=== PATIENT | male | born 1980 | race Caucasian/White ===

== ENCOUNTER 2022-07-21 16:58 | Emergency (ER) | payer OTHER, SELFPAY ==
[2022-07-21 17:20] VITALS: BP 138/73; PULSE 94; RESP 20; TEMP 36.8; O2SAT 98
--- NOTE | 2022-07-21 17:54 | ED.URI ---
HPI - URI/Sore Throat General Chief Complaint: Upper Respiratory Infection Stated Complaint: Cough,Body Aches,Sore Throat Time Seen by Provider: 07/21/22 17:45 History of Present Illness HPI Narrative: Randy Smith is a 41-year-old male anxious may with a PMH of depression [facility] of a fever and sore throat for fever sore throat, body aches, headache that started this morning. He has a history of strep and dizzy and does not have any prior medical stuff Related Data Allergies Allergy/AdvReac Type Severity Reaction Status Date / Time No Known Allergies Allergy Verified 07/21/22 18:04 Review of Systems Review of Systems: CONSTITUTIONAL: Has fever, chills, sweats. Has headache EYES: Denies visual changes, redness, discharge. ENT: Denies rhinorrhea, congestion, has sore throat, otalgia. CARDIOVASCULAR: Denies chest pain, palpitations, edema. RESPIRATORY: Denies dyspnea, wheezing, has cough GASTROINTESTINAL: Denies abdominal pain, nausea, vomiting, diarrhea. GENITOURINARY: Denies dysuria, hematuria, abnormal discharge SKIN: Denies rash or itching. NEUROLOGIC: Denies numbness, or focal weakness. PSYCHIATRIC: Denies anxiety or depression. REPLACED BY [facility] Past Medical History Medical History Depression Social History Social History (Updated 07/21/22 @ 18:01 by Sue Awan CNP) Smoking status: Never smoker Alcohol intake: current Comments At time of signature, I agree with nursing past medical, surgical, social and family history. There is no relevant family history pertinent to the presenting complaint. Exam Narrative: GENERAL: This is a well-nourished, well-developed patient, in mild distress. HEAD: normocephalic, atraumatic. EYES: Sclera clear/white. Vision is grossly intact. EARS: External ears normal, auditory canals clear,mild erythema ,and without drainage, TMs normal without perforation. Hearing grossly intact. NOSE: External nose normal without nasal discharge, nares without redness, no rhinorrhea. THROAT: Mucous membranes moist, posterior pharynx erythema NECK: Neck supple, non-tender CARDIOVASCULAR: Regular rate and rhythm without murmurs, gallops, or rubs. RESPIRATORY: Clear to auscultation. Breath sounds equal bilaterally. No wheezes, rales, or rhonchi. GASTROINTESTINAL: Abdomen soft, non-tender, SKIN: warm, intact with no suspicious lesions or rash, good texture and turgor. NEURO: awake, alert, and oriented to person, place and time. There were no obvious focal neurologic abnormalities. Steady gait EXTREMITIES: Normal range of motion. BACK: Nontender without deformity Course Course Emergency Course: patient comes here with sore throat and body aches that started today. States his fever was 102.5 earlier today Strep test positive Started on amoxicillin and to continue use ibuprofen Aleve or Tylenol for pain or fever Level of Care: Express Care Visit Vital Signs Vital signs: Vital Signs Temperature 98.2 F 07/21/22 17:20 Pulse Rate 94 07/21/22 17:20 Respiratory Rate 20 07/21/22 17:20 Blood Pressure 138/73 07/21/22 17:20 Pulse Oximetry 98 07/21/22 17:20 Oxygen Delivery Room Air 07/21/22 17:20 Temperature 98.2 F 07/21/22 17:20 Pulse Rate 94 07/21/22 17:20 Respiratory Rate 20 07/21/22 17:20 Blood Pressure 138/73 07/21/22 17:20 Pulse Oximetry 98 07/21/22 17:20 Oxygen Delivery Room Air 07/21/22 17:20 MDM - URI/Sore Throat Differential Diagnosis Differential diagnosis: Likely upper respiratory infection, sinusitis, viral infection, influenza, pharyngitis and other Lab Data Labs: Influenza A Screen Negative Reference Range: Negative Influenza B Screen Negative Reference Range: Negative Strep Screen Positive Group A Strep
== END 2022-07-21 18:05 | disposition home or self-care (01) ==
PROVIDERS: Emergency Provider Nurse Practitioner
DX: J02.0 Streptococcal pharyngitis (principal); Z20.822 Contact with and (suspected) exposure to COVID-19
CPT/HCPCS: 87426; 87804; 87880; 99203; C9803; G0463

== ENCOUNTER 2025-05-07 12:24 | Emergency (ER) | payer OTHER, SELFPAY ==
--- OUTSIDE RECORDS SUMMARY | 2025-05-07 12:27 | XMS_ITS | Encounter Summary ---
Author Organization [facility] Address [address] [place] [address] Care Team Providers Care Shipyard Painter Name Role Phone Unavailable Primary Care Provider Unavailabl e Prior Encounters Date Type Department Care Team Description 11/20/2019 Converted CPS Chart Documents [facility] [address], Vin[place] [address] [place] [phone] <No scans attached> 11/20/2019 Converted 13x Documents [place] [place] [facility] [address], [address] [place] [phone] <No scans attached> Plan of Treatment Not on file Procedures Procedure Name Priority Date/Time Associated Diagnosis Comments 14 LO AMALGAM 2 SURFACE Routine 02/08/20 12 12:00 AM PDT PERIODIC ORAL EVALUATION - ESTABLISHED PATIENT Routine 02/08/2012 12:00 AM PDT PANORAMIC RADIOGRAPHIC IMAGE Routine 02/08/2012 12:00 AM PDT BITEWINGS - FOUR RADIOGRAPHIC IMAGES Routine 02/08/2012 12:00 AM PDT INTRAORAL - COMPREHENSIVE SERIES OF RADIOGRAPHIC IMAGES Routine 02/08/2012 12:00 AM PDT ADDITIONAL X-RAY Routine 02/08/2012 12:0 0 AM PDT ADDITIONAL X-RAY Routine 02/08/2012 12:0 0 AM PDT ADDITIONAL X-RAY Routine 02/08/2012 12:0 0 AM PDT ADDITIONAL X-RAY Routine 02/08/2012 12:0 0 AM PDT ADDITIONAL X-RAY Routine 02/08/2012 12:0 0 AM PDT SINGLE X-RAY Routine 02/08/2012 12:00 AM PDT INTRAORAL PHOTO Routine 02/08/2012 12:00 AM PDT INTRAORAL PHOTO Routine 02/08/2012 12:00 AM PDT INTRAORAL PHOTO Routine 02/08/2012 12:00 AM PDT INTRAORAL PHOTO Routine 02/08/2012 12:00 AM PDT COMPREHENSIVE ORAL EVALUATION - NEW OR ESTABLISHED PATIENT Routine 02/16/2011 12:00 AM PDT Visit Diagnoses Not on file
--- OUTSIDE RECORDS SUMMARY | 2025-05-07 12:27 | XMS_ITS | Clinical Summary ---
Author Organization [facility] Address [address] [place] [address] Care Team Providers Care Practice Representative Name Role Phone Michelle Urbano Primary Care Provider + Allergies No known active allergies Medications ibuprofen (ADVIL,MOTRIN) 400 mg tablet Take by mouth every 6 (six) hours as needed for pain Active UNABLE TO FIND Med Name: Anastrazole Active UNABLE TO FIND Med Name: Enclomifene Active sertraline (ZOLOFT) 100 mg tabletIndication s:Generalized Anxiety Disorder,depress ion Take 1 tablet (100 mg total) by mouth daily 90 tablet 3 4 Active testosterone cypionate (DEPO-TESTOTERON E) 200 mg/mL injection Inject 1 mL (200 mg total) into the muscle as instructed every 14 (fourteen) days Doing every 7 days Active cholecalciferol (VITAMIN D-3) 5,000 unit capsule Take 1 capsule (5,000 Units total) by mouth daily Active tadalafiL (CIALIS) 5 mg tabletIndication s:Erectile dysfunction, unspecified erectile dysfunction type Take 1 tablet (5 mg total) by mouth daily 90 tablet 3 5 Active Active Problems Problem Noted Date Diagnosed Date Physical exam, annual 02/23/2025 Assessment & Plan (02/23/2025 9:44 AM CDT): Routine wellness visit conducted. Occasional smoking reported. No family history of colon cancer. Tetanus vaccination is up to date. - Discussed routine colon cancer screening at age 46. - Continue healthy habits, work on smoking cessation - Labs through [employer] [facility] - Refills sent of medications - Erectile dysfunction due to diseases classified elsewhere 05/31/2024 Generalized anxiety disorder 11/29/2023 Assessment & Plan (02/23/2025 9:44 AM CDT): Chronic, stable condition. Continue current medication regimen: sertraline 100mg daily Assessment & Plan (05/31/2024 10:02 AM CDT): Chronic, stable. Continue Zoloft. Recurrent major depressive disorder, in full rem ission 11/29/2023 Assessment & Plan (02/23/2025 9:44 AM CDT): Chronic, stable condition. Continue current medication regimen: sertraline 100mg daily Assessment & Plan (05/31/2024 10:02 AM CDT): Chronic, stable. Doing well continue Zoloft. Resolved Problems Problem Noted Date Diagnosed Date Resolved Date Labral tear of hip, degenerative 05/18/2018 05/31/2024 Overview (05/18/2018): Added automatically from request for surgery [id number] Encounters Date Type Department Care Team Description 02/23/2025 9:00 AM CDT Office Visit [facility] Family Medicine [address] [place] [phone] Michelle Urbano PA Physical exam, annual (Primary Dx); Erectile dysfunction, unspecified erectile dysfunction type; Generalized anxiety disorder; Recurrent major depressive disorder, in full remission from Last 3 Months Immunizations Immunization Administration Dates Next Due Anthrax 05/14/2009,02/14/2009 H1N1 Inj 09/18/2009 Hep A, Adult 05/17/2002,08/12/2001 Hep B Vaccine 12/08/2010,05/14/2009,02/15/2009 IPV 08/12/2001 Influenza LAIV (Nasal) 09/20/2015,2012,07/10/2011,10/04 Influenza, Quadrivalent, Spl it, Preservative Free, Intramuscular 11/26/2020,09/19/2019,10/04/2018 Influenza, Split 12/08/2010,07/20/2009, 5 Influenza, Trivalent, Cell Culture-based MDCK, Preservative Free, Antibiotic Free, Intramuscular 11/16/2017 Influenza, Trivalent, IM (MDV) 08/29/2012 Influenza, Trivalent, Preser vative Free, Intramuscular 08/25/2016,08/02/2014 Influenza, Unspecified 08/18/2023(Deferr ed: Patient Refused),08/18/2022(Deferred: Patient Refused) Influenza, Whole 09/15/2007, 5,11/12/2004,08/27,08/17/2002,08/12/2001 Meningococcal Polysaccharide (Menomune) 08/12/2001 PPD TEST 02/15/2009,08/12/2001 Smallpox 02/05/2005 Td, adsorbed 05/17/2002 Tdap 05/31/2024,05/17/2012 Typhoid H-P SQ/ID 02/05/2005,05/17/2002 Typhoid Inactivated 02/14/2009 Yellow Fever 05/17/2002 Surgical History Surgery Date Site/Laterality Comments WISDOM TOOTH EXTRACTION MYRINGOTOMY W/ TUBES x 2 HIP SURGERY Right scope; torn labrum Medical History Medical History Date Comments No known health problems Common cold No fever or coug h, resolved with antibiotic treatment. Off meds. x5 days Depression Labral tear of hip, degenerative 05/18/2018 Added automatically from request for surgery [id number] Chicken pox Family History Medical History Relation Name Comments No Known Problems Brother Diabetes Father Óscar Heart attack Father Óscar Alzheimer's disease Mother No Known Problems Sister Relation Name Status Comments Brother Alive Father Óscar Alive Mother Alive Sister Alive Social History Tobacco Use Types Packs/Day Years Used Date Smoking Tobacco: Former Cigarettes 0.3 15.2 S tarted: 02/14/2019 Cigars Smokeless Tobacco: Never Tobacco Cessation:Counseling Given: Not Answered Alcohol Use Standard Drinks/Week Comments Yes 0 (1 standard drink = 0.6 oz pur e alcohol) 1-2 drinks / month AUDIT-C Answer Date Recorded Q1: How often do you have a drink containing alc ohol? 2-3 times a week 02/23/2025 Q2: How many drinks containi ng alcohol do you have on a typical day when you are drinking? 1 or 2 02/23/2025 Q3: How often do you have si x or more drinks on one occasion? Never 02/23/2025 PHQ-2 Answer Date Recorded PHQ-2 Total Score (If total score is 3 or more points, staff should administer the PHQ-9) 0 02/23/2025 Sex and Gender Information Value Date Recorded Sex Assigned at Not on file Legal Sex Male 3:56 PM CDT Gender Identity Male 04/18/2018 4:00 PM CDT Sexual Orientation Not on file Occupation Industry Job Start Date Job End Date Not on file Not on file Not on file Obstetrics History Last Filed Vital Signs Vital Sign Reading Time Taken Comments Blood Pressure 124/74 02/23/2025 8:53 AM CDT Pulse 72 02/23/2025 8:53 AM CDT Temperature 36.4 C (97.6 F) 02/23/2025 8:53 AM CDT Respiratory Rate 16 02/23/2025 8:53 AM CDT Oxygen Saturation 97% 02/23/2025 8:53 AM CDT Inhaled Oxygen Concentration - - Weight 93.8 kg (206 lb 11.2 oz) 02/23/2025 8:53 AM CDT Height 167.6 cm (5' 6) 02/23/2025 8:53 AM CDT Body Mass Index 33.36 02/23/2025 8:53 AM CDT Plan of Treatment Health Maintenance Due Date Last Done Comments Hepatitis C Screening 1981 Covid-19 Vaccine ( season) 2024 02/06/2021, 01/16/2021 Influenza Vaccine (#1) 2025 , 09/19/2019, 10/04/2018, Additional history exists Depression Screening 02/23/2026 02/23/2025, 05/31/2024, 11/29/2023, Additional history exists Regular Well Visit/Exam 18-64 02/23/2026 02/23/2025, 11/29/2023 DTaP/Tdap/Td Vaccine (3 - Td or Tdap) 05/31/2034 05/31/2024, 05/17/2012, 05/17/2002 Hepatitis B Screening Completed 12/08/2010 , 05/14/2009, 02/15/2009 HPV Vaccines Aged Out No longer eligi ble based on patient's age to complete this topic Pneumococcal vaccine <65 Aged Out No longer eligible based on patient's age to complete this topic Medical Devices Implanted Type Area Broadcast Transmitter Operator Device Identifier Shelf Expiration Date Model / Serial / Lot Pivot Medical [id number] Cinchlock Ss Knotless Human Resources Operations Manager Lock [place] Suture Labrum - [id number] Implanted:Qty: 1 on 07/27/2018 by Hannah Robertson MD at [facility] [place] Right: Hip [employer] 01/05/2023 [id number] / / [id number] Pivot Medical [id number] Cinchlock Ss Knotless Human Resources Operations Manager Lock [place] Suture Labrum - [id number] Implanted:Qty: 1 on 07/27/2018 by Hannah Robertson MD at [facility] [place] Right: Hip [employer] Medical 10/12/2019 [id number] / / [id number] Pivot Medical [id number] Slingshot 45d Up Device Suturing - [id number] Implanted:Qty: 1 on 07/27/2018 by Hannah Robertson MD at [facility] [place] Right: Hip Pivot Medical [id number] / / [facility] [id number] Force Fiber 38in Blue Cobraid 2 Suture Nonabsorbable - [id number] Implanted:Qty: 4 on 07/27/2018 by Hannah Robertson MD at [facility] [place] Right: Hip [employer] [id number] / / [id number] Insurance [facility] CLAIMS [facility]S Care Teams Practice Representative Relationship Specialty Start Date End Date Michelle Urbano PA [address] [facility] [address] [place] [address] PCP - General Family Medicine 05/31/24
--- OUTSIDE RECORDS SUMMARY | 2025-05-07 12:27 | XMS_ITS | Clinical Summary ---
Author Organization [facility] Address [address] [place] [address] Care Team Providers Care Therapist Speech Name Role Phone Unavailable Primary Care Provider Unavailabl e Social History Tobacco Use Types Packs/Day Years Used Date Smoking Tobacco: Never Assessed Sex and Gender Information Value Date Recorded Sex Assigned at Not on file Legal Sex Male 9:44 AM PST Gender Identity Not on file Sexual Orientation Not on file Plan of Treatment Not on file
--- OUTSIDE RECORDS SUMMARY | 2025-05-07 12:27 | XMS_ITS | Clinical Summary ---
Author Organization [facility] Address [address] [place] [address] Care Team Providers Care Security Systems Integrator Name Role Phone None, Provider MD Primary Care Provider Unavaila ble Allergies No known active allergies Medications ondansetron (ZOFRAN ODT) 4 MG disintegrating tablet Take 1 tablet (4 mg total) by mouth every 8 (eight) hours as needed for Nausea. 15 tablet 0 Active Social History Tobacco Use Types Packs/Day Years Used Date Smoking Tobacco: Former Cigarettes Smokeless Tobacco: Never Alcohol Use Standard Drinks/Week Comments Yes 0 (1 standard drink = 0.6 oz pur e alcohol) socially Sex and Gender Information Value Date Recorded Sex Assigned at Not on file Legal Sex Male 8:26 PM CDT Gender Identity Not on file Sexual Orientation Not on file Last Filed Vital Signs Vital Sign Reading Time Taken Comments Blood Pressure 145/81 07/22/2022 8:49 PM CDT Pulse 100 07/22/2022 8:49 PM CDT Temperature 36.9 C (98.5 F) 07/22/2022 8:49 PM CDT Respiratory Rate 18 07/22/2022 8:49 PM CDT Oxygen Saturation 100% 07/22/2022 8:49 PM CDT Inhaled Oxygen Concentration - - Weight 117.5 kg (259 lb 0.7 oz) 07/22/2022 4:34 PM CDT Height 167.6 cm (5' 6) 07/22/2022 4:34 PM CDT Body Mass Index 41.81 07/22/2022 4:34 PM CDT Plan of Treatment Health Maintenance Due Date Last Done Comments Annual Physical 1984 Hepatitis C 1999 DTaP, Tdap and Td Vaccines ( 1 - Tdap) 2000 Hepatitis B Vaccines (1 of 3 - 19+ 3-dose series) 2000 COVID-19 Vaccine (2023-2 5 season) 2024 02/06/2021, 01/16/2021 HPV Vaccines Aged Out No longer eligi ble based on patient's age to complete this topic Meningococcal B Vaccine Aged Out No l onger eligible based on patient's age to complete this topic Meningococcal Vaccine Aged Out No meño dary eligible based on patient's age to complete this topic Pneumococcal Vaccine: Pediatrics (0 to 5 Years) and At-Risk Patients (6 to 49 Years) Aged Out No longer eligible b ased on patient's age to complete this topic RSV Immunizations Under 20 Months Aged Out No longer eligible b ased on patient's age to complete this topic Insurance Care Teams Security Systems Integrator Relationship Specialty Start Date End Date None, Provider, PCP - General 03/30/19
--- OUTSIDE RECORDS SUMMARY | 2025-05-07 12:27 | XMS_ITS | Referral Summary ---
Author Organization [facility] Address [address] [place] [address] Care Team Providers Care Demolition Hammer Operator Name Role Phone Michelle Urbano Primary Care Provider + Encounters Date Type Department Care Team Description 02/23/2025 9:00 AM CDT Office Visit [facility] Family Medicine [address] [phone] Michelle Urbano PA Physical exam, annual (Primary Dx); Erectile dysfunction, unspecified erectile dysfunction type; Generalized anxiety disorder; Recurrent major depressive disorder, in full remission from Last 3 Months Allergies No known active allergies Medications ibuprofen [...] work on smoking cessation - Labs through [employer] - Refills sent of medications - Erectile [...] (05/18/2018): Added automatically from request for surgery [id number] Immunizations Immunization Administration Dates Next Due Anthrax [...] 02/05/2005,05/17/2002 Typhoid Inactivated 02/14/2009 Yellow Fever 05/17/2002 Social History Tobacco Use Types Packs/Day Years [...] file Not on file Not on file Last Filed Vital Signs [...] 02/23/2025 8:53 AM CDT Plan of Treatment Not on file Medical Devices Implanted Type Area Disaster Or Damage Control Specialist Device Identifier Shelf Expiration Date Model / Serial / Lot Pivot Medical [id number] Cinchlock Ss Knotless Salesperson Men'S Furnishings Lock [place] Suture Labrum - [id number] Implanted:Qty: 1 on 07/27/2018 by Hannah Robertson MD at [facility] [place] Right: Hip [employer] 01/05/2023 [id number] / / [id number] Pivot Medical [id number] Cinchlock Ss Knotless Salesperson Men'S Furnishings Lock [place] Suture Labrum - [id number] Implanted:Qty: 1 on 07/27/2018 by Hannah Robertson MD at [facility] Right: Hip [employer] 10/12/2019 [id number] / / [id number] Pivot Medical [id number] Slingshot 45d Up Device Suturing - [id number] Implanted:Qty: 1 on 07/27/2018 by Hannah Robertson MD at [facility] Right: Hip Pivot Medical [id number] / / [facility] [id number] Force Fiber 38in Blue Cobraid 2 Suture Nonabsorbable - [id number] Implanted:Qty: 4 on 07/27/2018 by Hannah Robertson MD at [facility] Right: Hip [facility] [facility] [id number] / / [id number] Insurance [facility] Care Teams Demolition Hammer Operator Relationship Specialty Start Date End Date Michelle Urbano PA [address] [place] [address] PCP - General Family Medicine 05/31/24
[2025-05-07 12:36] VITALS: BP 149/86; PULSE 83; RESP 16; TEMP 38.4; O2SAT 97
[2025-05-07 13:11] LABS: EDUAAPPEAR Clear; EDUABILI Negative (Negative); EDUABLOOD Negative (Negative); EDUACOLOR1 Dark; EDUAGLUCOSE Negative (Negative); EDUAKETONE Negative (Negative); EDUALEUKO Negative (Negative); EDUANITRATE Negative (Negative); EDUAPH 7.0; EDUAPROTEIN Negative (Negative); EDUASPGRAVITY 1.020; EDUAUROBILI 1.0
[2025-05-07 13:12] LABS: EDCOVIDSCREEN Negative (Negative); EDINFLUASCREEN Negative (Negative); EDINFLUBSCREEN Negative (Negative)
--- NOTE | 2025-05-07 13:14 | ED_ITS ---
HPI - General Adult General Chief complaint: Upper Respiratory Infection Stated complaint: UTI / FEVER History of Present Illness HPI narrative: Randy Smith is a 44 y/o male who presents with body aches, fever, mild cough, painful urination that started about 2 days ago. He states he has some intermittent right lower flank pain as well. He denies sore throat/ congestion/ Denies concern for STI and does not want to be screened Related Data Home Medications ?Medication ?Instructions ?Recorded ?Confirmed ?Last Taken ?Type No Home Medications 05/07/25 05/07/25 Unknown History Allergies Allergy/AdvReac Type Severity Reaction Status Date / Time No Known Allergies Allergy Verified 05/07/25 12:56 Review of Systems Review of Systems: All systems reviewed & are unremarkable except as noted in HPI and below PMFSH Past Medical History Medical History Depression Social History Social History Smoking status: Never smoker Alcohol intake: current Exam Narrative: GENERAL: Well-appearing, well-nourished, and in no acute distress. HEAD: Normocephalic, atraumatic. EYES: PERRLA and EOMI. ENT: Nares clear, no rhinorrhea or epistaxis. Mucous membranes moist. Oropharynx without tonsillar hypertrophy exudate or other lesions. Bilateral TMs pearly coles non bulging NECK: Supple. No adenopathy or masses. CHEST: Clear to auscultation. No respiratory distress. No wheezes rales or rhonchi HEART: Regular rate and rhythm. No murmur heard. Normal peripheral pulses. ABDOMEN: Soft, nontender, nondistended, normal active bowel sounds. EXTREMITIES: Normal range of motion. NEURO: No focal deficits. Alert and oriented x3. PSYCH: Normal mood and affect. Course Course Level of Care: Express Care Visit Vital Signs Vital signs: Vital Signs Temperature 38.4 C H 05/07/25 12:36 Pulse Rate 83 05/07/25 12:36 Respiratory Rate 16 05/07/25 12:36 Blood Pressure 149/86 H 05/07/25 12:36 Pulse Oximetry 97 05/07/25 12:36 Oxygen Delivery Room Air 05/07/25 12:36 Temperature 38.4 C H 05/07/25 12:36 Pulse Rate 83 05/07/25 12:36 Respiratory Rate 16 05/07/25 12:36 Blood Pressure 149/86 H 05/07/25 12:36 Pulse Oximetry 97 05/07/25 12:36 Oxygen Delivery Room Air 05/07/25 12:36 Medical Decision Making MDM Narrative Medical decision making narrative: 44 y/o with some vague complaints of body aches, fever, dysuria, mild cough, recent travel symptoms for about 48 hours lung sounds clear throughout No real CVA tenderness, denies abdominal pain viral swab here - Negative Urine dip here - negative concern for viral syndrome will d/c with continued Tylenol / Motrin / push oral hydration Close PCP follow up Strict ER precautions discussed Medical Records Medical records reviewed: Yes I reviewed the external patient's medical records. Vital Signs Vital Signs: Vital Signs Temperature 38.4 C H 05/07/25 12:36 Pulse Rate 83 05/07/25 12:36 Respiratory Rate 16 05/07/25 12:36 Blood Pressure 149/86 H 05/07/25 12:36 Pulse Oximetry 97 05/07/25 12:36 Oxygen Delivery Room Air 05/07/25 12:36 Temperature 38.4 C H 05/07/25 12:36 Pulse Rate 83 05/07/25 12:36 Respiratory Rate 16 05/07/25 12:36 Blood Pressure 149/86 H 05/07/25 12:36 Pulse Oximetry 97 05/07/25 12:36 Oxygen Delivery Room Air 05/07/25 12:36 VItals reviewed by me Lab Data Labs: Lab Results 05/07/25 05/07/25 Range/Units 13:08 13:10 POC Urine Color Dark POC Urine Clarity Clear POC Urine pH 7.0 POC Ur Specif [place] 1.020 POC Urine Protein Negative (Negative) POC Ur Glucose (UA) Negative (Negative) POC Urine Ketones Negative (Negative) POC Urine Blood Negative (Negative) POC Urine Nitrite Negative (Negative) POC Urine Bilirubin Negative (Negative) POC Urine Urobilinogen 1.0 POC U Leukocyte Esteras Negative (Negative) POC Influenza A Ag Negative (Negative) POC Influenza B Ag Negative (Negative) POC SARS CoV-2 Ag Negative (Negative) Discharge Plan Discharge Clinical Impression: Acute viral syndrome Patient Disposition: Home Condition: Stable Instructions: Antibiotic Form Additional Instructions: your swabs and urine are negative here today please continue Tylenol / Motrin for your symptoms and push oral hydration Follow up with your PCP in 3-5 days If you develop worsening symptoms Fever lasting longer then 3 days, vomiting, unable to empty your bladder, abdominal pain, chest pain, shortness of breath or any other concerns go to the ER for further evaluation. Patient Language: Ecuadorean Prescriptions: No Action No Home Medications Follow-up/Referrals: Sundeep,Michelle Bonds [Other] - 3 Days Stand Alone Forms: Work/School Release IP Time of Disposition: 13:28
== END 2025-05-07 13:40 | disposition home or self-care (01) ==
PROVIDERS: Emergency Provider Nurse Practitioner Family
DX: B34.9 Viral infection, unspecified (principal); Z20.822 Contact with and (suspected) exposure to COVID-19
CPT/HCPCS: 81003; 87426; 87804; 99212; G0463